=== PATIENT | female | born 1955 | race African-American/Black ===

== ENCOUNTER 2021-09-28 10:59 | Emergency (ER) | payer OTHER ==
[~2021-09-28] VITALS: Ht 165.1 cm; Wt 98.0 kg
[2021-09-28 12:27] LABS: BASOPHILS % 0.5 % (0.0-2.0); EOSINOPHILS % 2.7 % (0.0-5.0); HEMATOCRIT. 33.9 % (36.0-48.0); HEMOGLOBIN. 11.1 g/dL (12.0-16.0); LYMPHOCYTES % 15.6 % (20.0-50.0); MEAN CORPUSCULAR HEMOGLOBIN 29.1 pg (28.0-32.0); MEAN CORPUSCULAR VOLUME 89.3 fL (81.0-99.0); MEAN PLATELET VOLUME 7.8 fl (7.4-10.4); MONOCYTES % 10.5 % (2.0-8.0); NEUTROPHILS % 70.7 % (40.0-76.0); PLATELET 242 x1000/uL (130-400)
[2021-09-28 12:31] LABS: CHLORIDE 111 mEq/L (98-107)
[2021-09-28 13:23] LABS: C REACTIVE PROTEIN QUANT 8.8 mg/L (0.0-3.0)
[2021-09-28 14:15] VITALS: BP 144/74
== END 2021-09-28 14:22 | disposition short-term general hospital (02) ==
LOC: ER 10:59 → CANBEDREQ 17:17
DX: M25.571 Pain in right ankle and joints of right foot (principal); I49.9 Cardiac arrhythmia, unspecified; Z99.81 Dependence on supplemental oxygen; Z88.0 Allergy status to penicillin
CPT/HCPCS: 36415; 71045; 73610; 73630; 80053; 83880; 84484; 85025; 85651; 86140; 93005; 99285